=== PATIENT | male | born 1965 | race Caucasian/White ===

== ENCOUNTER 2018-03-22 05:25 | Outpatient (CLI) | payer BC ==
[~2018-03-22] VITALS: Ht 182.9 cm; Wt 103.0 kg
[~2018-03-22 05:25] MED LIST: FURO40TA4 PO; INSU100I16 SQ; MTF500T PO; PNT40TEC PO; POTA10CA43 PO; PRCD5U PO; SIMV20TA3 PO; SIMV40TA2 PO
[2018-03-22] MEDS ORDERED: ASPI-586 PO (11:19)
[2018-03-22] MEDS ORDERED: FURO40TA4 PO (11:19)
[2018-03-22] MEDS ORDERED: ALLO100T PO (11:19)
[2018-03-22] MEDS ORDERED: METF-397 PO (11:19)
[2018-03-22] MEDS ORDERED: POTA10CA43 PO (11:19)
[2018-03-22] MEDS ORDERED: SIMV20TA3 PO (11:19)
== END 2018-03-22 11:23 | disposition home or self-care (01) ==
LOC: PREOP 05:25
PROVIDERS: ATTEND Surgery
DX: Z01.818 Encounter for other preprocedural examination (principal)

== ENCOUNTER 2018-03-29 06:57 | Day surgery (SDC) | payer BC ==
[~2018-03-29] VITALS: Ht 182.9 cm; Wt 103.0 kg
[~2018-03-29 06:57] MED LIST changes: +ALLO100T PO; +ASPI-586 PO; +METF-397 PO
--- OUTSIDE RECORDS SUMMARY | 2018-03-29 07:01 | XMS REPORT ---
Author Author Ge Reza Organization [employer] Address Unknown Phone Unavailable Care Team Providers Care Solar Installation Helper Name Role Phone Ge Reza CP Unavailable Allergies No Known Allergies Problems Problem Type Condition ICD-9 Code Onset Dates Condition Status Assessment Routine general medical examination at health care facility V70.0 Active Medications No Known Medications Procedures Procedure Coding System Code Date Collection of drug screen CPT-4 KHADAR Feb 08, 2014 Results Collection of drug screen Summary Purpose [employer] Submission
--- OUTSIDE RECORDS SUMMARY | 2018-03-29 07:02 | XMS REPORT | Continuity of Care Document ---
Author Author [facility] Organization [facility] Address Unknown Phone Unavailable Allergies Active Description Code Type Severity Reaction Onset Reported/Identified Relationship to Patient Clinical Status Yes No Known Drug Allergies [id number] Drug Allergy Unknown N/A 03/22/2018 Medications There is no data. Problems Date Dx Coded Attending Type Code Diagnosis Diagnosed By 04/16/2010 Ot 606.9 08/19/2013 MARQUEZ SINCLAIR MD Ot 250.12 DIAB W KETOACIDOSIS, TYPE II OR UNSPEC T 08/19/2013 MARQUEZ SINCLAIR MD Ot 272.4 HYPERLIPIDEMIA NEC/NOS 08/19/2013 MARQUEZ SINCLAIR MD Ot 276.51 DEHYDRATION 08/19/2013 MARQUEZ SINCLAIR MD Ot 278.00 OBESITY, NOS 08/19/2013 MARQUEZ SINCLAIR MD Ot 401.9 HYPERTENSION NOS 08/19/2013 MARQUEZ SINCLAIR MD Ot 459.81 VENOUS INSUFFICIENCY NOS 08/19/2013 MARQUEZ SINCLAIR MD Ot 466.0 ACUTE BRONCHITIS 08/19/2013 MARQUEZ SINCLAIR MD Ot 493.90 ASTHMA, UNSPECIFIED 08/19/2013 MARQUEZ SINCLAIR MD Ot 535.50 UNSP GASTRITIS GASTRODUODENITIS W/O ME 08/19/2013 MARQUEZ SINCLAIR MD Ot 782.3 EDEMA 08/19/2013 MARQUEZ SINCLAIR MD Ot V03.82 PROPHYLACTIC VACC AGAINST STREPTOCOCCUS 08/19/2013 MARQUEZ SINCLAIR MD Ot V04.81 ND FOR PROPHYLACTIC VACCIN AND INOCULATI 08/19/2013 MARQUEZ SINCLAIR MD Ot V58.67 LONG-TERM (CURRENT) USE OF INSULIN 08/19/2013 MARQUEZ SINCLAIR MD Ot V85.36 BODY MASS INDEX 36.0-36.9, ADULT 04/26/2014 Ot 606.9 04/26/2014 Ot 443.9 05/03/2014 Ot 606.9 05/03/2014 Ot 443.9 05/22/2014 MARQUEZ SINCLAIR MD Ot 785.2 05/22/2014 Ot 606.9 05/22/2014 Ot 443.9 05/22/2014 DOTTIE JOHANSEN, MARQUEZ Jerome Ot 785.2 06/15/2014 MARQUEZ SINCLAIR MD Ot 785.2 03/22/2018 CORBIN JOHANSEN, LAZARO Carver Ot Z01.818 ENCOUNTER FOR OTHER PREPROCEDURAL EXAMIN 03/22/2018 MARQUEZ SINCLAIR MD Ot 785.2 CARDIAC MURMURS NEC 03/23/2018 CORBIN JOHANSEN, LAZARO Carver Ot Z01.818 ENCOUNTER FOR OTHER PREPROCEDURAL EXAMIN 03/28/2018 CORBIN JOHANSEN, LAZARO Carver Ot Z01.818 ENCOUNTER FOR OTHER PREPROCEDURAL EXAMIN 03/29/2018 MARQUEZ SINCLAIR MD Ot 785.2 CARDIAC MURMURS NEC Procedures There is no data. Results There is no data. Encounters ACCT No. Visit Date/Time Discharge Status Pt. Type Provider Facility Loc./Unit Complaint [id number] 03/22/2018 05:25:00 03/22/2018 11:23:00 DIS Outpatient LAZARO ALANIZ MD [facility] PREOP COLONOSCOPY [id number] 05/03/2014 07:40:00 05/03/2014 23:59:59 CLS Outpatient MARQUEZ SINCLAIR MD [facility] CARD HEART MUMUR [id number] 08/16/2013 17:11:00 08/19/2013 14:20:00 DIS Inpatient MARQUEZ SINCLAIR MD [facility] 4TH HYPERGLYCEMIA, RESPIRATORY DISTRESS [id number] 03/29/2018 06:57:00 ACT Outpatient LAZARO ALANIZ MD [facility] ENDO SCREENING [id number] 01/02/2011 14:10:00 Document Registration [id number] 04/17/2010 00:00:00 Document Registration [id number] 01/16/2010 09:58:00 Document Registration [email or web address] 05/03/2014 07:45:50 ACT Document Registration
[2018-03-29] MEDS ORDERED: NS IV 500 ML 500 ML ONE (07:14)
[2018-03-29] MEDS ORDERED: NS IV 500 ML 500 ML IV PRN (07:18)
[2018-03-29 07:27] VITALS: BP 111/79
[2018-03-29] MEDS ORDERED: fentaNYL INJECTION 100 MCG/2 ML AMP IVP ONE (07:30)
[2018-03-29] MEDS ORDERED: MIDAZOLAM 2 MG/2 ML (VERSED) VIAL IVP ONE (07:30)
[2018-03-29] MEDS ORDERED: fentaNYL INJECTION 100 MCG/2 ML AMP ONE (07:53)
[2018-03-29] MEDS ORDERED: MIDAZOLAM 2 MG/2 ML (VERSED) VIAL ONE ×3 (07:53)
--- NOTE | 2018-03-29 07:59 | History & Physicial ---
History of Present Illness History of Present Illness Reason for visit/HPI to undergo screening colonoscopy. No family history of colon cancer or polyps Date of Admission 03/29/18 Date Seen by a Provider: Mar 29, 2018 Time Seen by a Provider: 07:35 I consulted on this patient on 03/29/18 07:56 Attending Physician Lazaro Morales MD Admitting Physician Rusty Cartlon MD Consult Allergies and Home Medications Allergies Coded Allergies: No Known Drug Allergies (Unverified , 03/22/18) Home Medications Allopurinol 100 Mg Tablet, 100 MG PO DAILY, (Reported) Aspirin 81 Mg Tablet.dr, 81 MG PO DAILY, (Reported) Furosemide 40 Mg Tablet, 40 MG PO DAILY, (Reported) Metformin HCl 500 Mg Tablet, 500 MG PO BID, (Reported) Potassium Chloride 10 Meq Capsule.er, 10 MEQ PO DAILY, (Reported) Simvastatin 20 Mg Tablet, 20 MG PO DAILY, (Reported) Patient Home Medication List Home Medication List Reviewed: Yes Past Mtbowoi-Axoksc-Adgtwp Hx Patient Social History Marrital Status: Employed/Student: employed Alcohol Use: Denies Use Recreational Drug Use: No Smoking Status: Former Smoker Former Smoker, Quit: Mar 22, 1999 Type Used: Cigarettes Recent Foreign Travel: No Contact w/other who traveled: No Recent Hopitalizations: No Recent Infectious Disease Expo: No Immunizations Up To Date Tetanus Booster (TDap): More than 5yrs Seasonal Allergies Seasonal Allergies: No Surgeries No Respiratory No Currently Using CPAP: No Currently Using BIPAP: No Cardiovascular Yes Heart Murmur, High Cholesterol Neurological No Reproductive System Hx Reproductive Disorders: No Sexually Transmitted Disease: No HIV/AIDS: No Musculoskeletal No Endocrine History of Endocrine Disorders: Yes Endocrine Disorders: Diabetes, Non-Insulin dep HEENT History of HEENT Disorders: No Loss of Vision: Bilateral Hearing Impairment: Denies Blood Transfusions Adverse Reaction to a Blood Tr: No (N/A) Family Medical History Family Hx: Alcoholism 03 FATHER Cancer 03 MOTHER (LUNG CANCER) Family history: Thyroid disorder 09 SISTER Myocardial infarction 03 FATHER, Onset:62 Stroke 03 FATHER Review of Systems Constitutional: no symptoms reported EENTM: no symptoms reported Respiratory: no symptoms reported Cardiovascular: no symptoms reported Gastrointestinal: no symptoms reported Genitourinary: no symptoms reported Musculoskeletal: no symptoms reported Skin: no symptoms reported Psychiatric/Neurological: No Symptoms Reported Physical Exam Vital Signs Vital Signs - First Documented 03/29/18 07:27 Temp 97.3 Pulse 71 Resp 18 B/P (MAP) 111/79 (90) Pulse Ox 100 O2 Delivery Room Air Capillary Refill : Height, Weight, BMI Height: 6'0.00" Weight: 227lbs. 0.0oz. 102.173535jm; 30.8 BMI Method: General Appearance: No Apparent Distress Neck: Normal Inspection Respiratory: Lungs Clear Cardiovascular: Regular Rate, Rhythm Gastrointestinal: Non Tender, Soft Extremity: Normal Inspection Neurologic/Psychiatric: Alert, Oriented x3 Skin: Warm/Dry Assessment/Plan Assessment and Plan gentleman to undergo screening colonoscopy. Discussed in detail. Admission Diagnosis Admission Status: Other (Outpt Proc) LAZARO MORALES MD Mar 29, 2018 07:59
--- NOTE | 2018-03-29 07:59 | Conscious Sedation/ASA ---
Conscious Sedation Pre-Proced Time 07:38 ASA Score 2 For ASA 3 and 4: Consider anesthesia and medical clearance. Also, for patients with a history of failed moderate sedation consider anesthesia. Airway Lungs Heart ASA score ASA 1: a normal healthy patient ASA 2: a patient with a mild systemic disease (mid diabetes, controlled hypertension, obesity ASA 3: a patient with a severe systemic disease that limits activity (angina , COPD, prior Myocardial infarction) ASA 4: a patient with an incapacitating disease that is a constant threat to life (CHF, renal failure) ASA 5: a moribund patient not expected to survive 24 hrs. (ruptured aneurysm) ASA 6: a declared brain patient whose organs are being harvested. For emergent operations, add the letter E after the classification Mallampati Classification Grade 1 Sedation Plan Discussed options with patient/fam The patient is an appropriate candidate to undergo the planned procedure, sedation, and anesthesia. The patient immediately re-assessed prior to indication. LAZARO ALAINZ MD Mar 29, 2018 07:59
--- NOTE | 2018-03-29 08:25 | Endo Procedure Record ---
Endo Procedure Report Date of Procedure Last Colonoscopy: No Mar 29, 2018 Surgeon (s) LAZARO ALANIZ MD Post Procedure/Op Diagnosis sigmoid diverticulosis Procedure Performed colonoscopy to cecum Description of Procedure Anesthesia Type: Conscious Sedation Specimen(s) collected/removed None Description of the Procedure indication for the procedure: This gentleman came in for screening colonoscopy. He denied any family history of colon cancer or polyps. Informed consent was obtained after reviewing the procedure in detail. Description of the procedure he was placed in left lateral decubitus position and his vital signs were monitored. Conscious sedation was achieved using Versed and fentanyl. Digital rectal examination was unremarkable. The colonoscope was then introduced into the rectum and advanced all the way up to the cecum. The scope was then withdrawn slowly and the mucosa examined in a systematic fashion. Findings: Sigmoid diverticulosis. He tolerated the procedure well and was taken back to the nursing area in a stable condition. Impression: Screening colonoscopy. No polyps. No family history. Recommend repeating in 10 years. Copy Copies To 1: MARQUEZ SINCLAIR MD, XAVIER M MD Mar 29, 2018 08:25
--- NOTE | 2018-03-29 08:26 | Discharge Inst-Simple/Standard ---
Discharge Inst-Standard Discharge Medications New, Converted or Re-Newed RX: Other Patient Instructions/Follow Up Plan of Care/Instructions/FU: repeat colonoscopy in 10 years Activity as Tolerated: Yes Discharge Diet: No Restrictions LAZARO ALANIZ MD Mar 29, 2018 08:26
[2018-03-29 08:30] VITALS: BP 102/69
[2018-03-29 09:00] VITALS: BP 110/72
[2018-03-29 09:08] VITALS: BP 110/72
== END 2018-03-29 09:09 | disposition home or self-care (01) ==
LOC: ENDO 06:57
PROVIDERS: ATTEND Surgery
DX: Z12.11 Encounter for screening for malignant neoplasm of colon (principal); K57.30 Diverticulosis of large intestine without perforation or abscess without bleeding; E78.00 Pure hypercholesterolemia, unspecified; R01.1 Cardiac murmur, unspecified; E11.9 Type 2 diabetes mellitus without complications; Z87.891 Personal history of nicotine dependence; Z79.82 Long term (current) use of aspirin; Z79.84 Long term (current) use of oral hypoglycemic drugs; Z79.899 Other long term (current) drug therapy

== ENCOUNTER → 2022-05-14 | Outpatient (CLI) | payer BC, OTHER ==
[~2022-05-14] MED LIST changes: +SIMV20TA26 PO
== END ==
LOC: CARD 09:33
PROVIDERS: ATTEND Internal Medicine
DX: I35.2 Nonrheumatic aortic (valve) stenosis with insufficiency (principal); I51.7 Cardiomegaly
CPT/HCPCS: 93306